=== PATIENT | female | born 1975 | race Caucasian/White ===

== ENCOUNTER 2021-12-12 21:11 | Emergency (ER) | payer OTHER ==
[2021-12-12 21:30] VITALS: BP 145/79; PULSE 72; RESP 18; TEMP 98.1
[2021-12-13] MEDS ORDERED: DEXAMETHASONE SOD PHOSPHATE 10 MG/ML 1 ML VIAL IM STA (00:29)
[2021-12-13] MEDS ORDERED: diphenhydrAMINE 50 MG/ML 1 ML VIAL IM STA (00:30)
--- NOTE | 2021-12-13 00:32 | ED ---
ENT HPI - General Chief complaint: ENT Stated complaint: Sore Throat Time Seen by Provider: 12/13/21 00:06 Source: patient, RN notes reviewed Mode of arrival: ambulatory Limitations: no limitations - History of Present Illness Initial comments: She presents stating that she has had an irritated throat the morning. Patient states she's had postnasal drainage and feels like there is fluid in her left ear. Patient has into urgent care as well as her regular physician. Patient has been tested for Covid several times, she is also been tested for strep which was negative. Patient in the midst of a course of cephalexin which is not helping. Patient has had a fever. Patient states the symptoms worsen morning. Fact in the morning she feels like her uvula is swollen. No headache, no fever or chills, no changes in vision or hearing, no neck pain, no chest pain or shortness of breath, no abdominal pain, no nausea or vomiting, no changes in urination or bowel movements, no numbness or tingling, no extremity pain, no skin rashes or lesions. Past medical, surgical, social, and family history reviewed. - Related Data Previous Rx's Medication Instructions Recorded methylPREDNISolone Dose Pack 4 mg PO DIRECTED #21 tab 12/13/21 [Medrol Dose Pack] Allergies Allergy/AdvReac Type Severity Reaction Status Date / Time erythromycin base Allergy Nausea & Verified 12/12/21 21:30 [From Erythrocin] Vomiting hydroxychloroquine Allergy Itching Verified 12/12/21 21:30 [From Plaquenil] meloxicam [From Mobic] Allergy Itching Verified 12/12/21 21:30 codeine AdvReac Unknown Verified 12/12/21 21:30 Review of Systems ROS Statement: Those systems with pertinent positive or pertinent negative responses have been documented in the HPI. ROS Other: All systems not noted in ROS Statement are negative. Past Medical History Past Medical History: Rheumatoid Arthritis (RA) History of Any Multi-Drug Resistant Organisms: None Reported Past Surgical History: Adenoidectomy, Tonsillectomy Additional Past Surgical History / Comment(s): breast reduction, D & C Past Psychological History: No Psychological Hx Reported Smoking Status: Never smoker Past Alcohol Use History: Occasional Past Drug Use History: None Reported General Exam - General Exam Comments Initial Comments: Vital signs stable, patient afebrile. Does not appear to be ill or toxic. No distress Limitations: no limitations General appearance: alert, in no apparent distress Head exam: Present: atraumatic, normocephalic, normal inspection Eye exam: Present: normal appearance, PERRL, EOMI. Absent: scleral icterus, conjunctival injection, periorbital swelling ENT exam: Present: normal exam, normal oropharynx, mucous membranes dry, mucous membranes moist, TM's normal bilaterally, normal external ear exam, other (Patient has edematous turbinates which are pink in color. No erythema. No evidence of purulent discharge. No sinus tenderness) Expanded Ear exam: Present: normal external inspection. Absent: auricular trauma Mouth exam: Present: tongue normal. Absent: drooling, trismus, muffled voice, tongue elevation, laceration Teeth exam: Present: normal inspection. Absent: dental caries, fractured tooth #, gingival enlargement Throat exam: other (Clear postnasal drainage with some cobblestoning, no evidence of tonsillitis or uvulitis). negative: tonsillar erythema, tonsillomegaly, tonsillar exudate, R peritonsillar mass, L peritonsillar mass Neck exam: Present: normal inspection, full ROM. Absent: tenderness, meningismus, lymphadenopathy Respiratory exam: Present: normal lung sounds bilaterally. Absent: respiratory distress, wheezes, rales, rhonchi, stridor, chest wall tenderness, accessory muscle use Cardiovascular Exam: Present: regular rate, normal rhythm, normal heart sounds. Absent: systolic murmur, diastolic murmur, rubs, gallop, clicks GI/Abdominal exam: Present: soft, normal bowel sounds. Absent: distended, tenderness, guarding, rebound, rigid Extremities exam: Present: normal inspection, full ROM, normal capillary refill. Absent: tenderness, pedal edema, joint swelling, calf tenderness Back exam: Present: normal inspection Neurological exam: Present: alert, oriented X3, CN II-XII intact Psychiatric exam: Present: normal affect, normal mood Skin exam: Present: warm, dry, intact, normal color. Absent: rash Course Vital Signs 12/12/21 21:25 Temperature 98.1 F Pulse Rate 72 Respiratory 18 Rate Blood Pressure 145/79 O2 Sat by Pulse 98 Oximetry Medical Decision Making - Medical Decision Making Suspect the patient's symptomatology is related to postnasal drainage, likely related to ALLERGIC rhinitis. No evidence of infectious process on physical examination. We'll treat with a course of corticosteroids. Patient can continue antihistamines and Flonase. Follow-up with regular physician and the ear nose and throat doctor. Patient was told to return to the ER for any signs or symptoms worsen. Told to return immediately if any other problems arise. All questions answered. Treatment plan discussed. Patient in agreement Every effort has been made to ensure accuracy of this dictation. However, due to the limitations of electronic medical records and dictation devices, errors in charting still occur. Supervising physician Dr. Whaley Disposition Clinical Impression: Allergic rhinitis, Post-nasal drainage Disposition: HOME SELF-CARE Condition: Stable Instructions (If sedation given, give patient instructions): Allergic Rhinitis (ED), Postnasal Drip (DC) Additional Instructions: Try 25-50 mg of Benadryl before bedtime. Take the Medrol Dosepak as directed. Follow-up with your regular doctor and your ear nose and throat doctor. Follow-up with your regular physician as directed. Return to the ER immediately if any symptoms worsen, new symptoms arise, or any other problems develop. Continue the Flonase Prescriptions: methylPREDNISolone Dose Pack [Medrol Dose Pack] 4 mg PO DIRECTED #21 tab Is patient prescribed a controlled substance at d/c from ED?: No Referrals: Mike Gold MD [Primary Care Provider] - 1-2 days Time of Disposition: 00:32
== END 2021-12-13 00:50 | disposition home or self-care (01) ==
LOC: EC 21:11
DX: J30.9 Allergic rhinitis, unspecified (principal); Z88.6 Allergy status to analgesic agent; Z88.5 Allergy status to narcotic agent; Z88.8 Allergy status to other drugs, medicaments and biological substances
CPT/HCPCS: 96372; 99282